=== PATIENT | male | born 1965 | race Caucasian/White ===

== ENCOUNTER 2019-09-02 07:11 | Inpatient (IN) | payer BC ==
[~2019-09-02 07:11] MED LIST: CEFAZOLIN 2 Gram 2 GM/50 ML BAG IVPB ONE; CELECOXIB 100 MG CAPSULE PO ONE; FAMOTIDINE 20MG TABLET PO ONE; MECLIZINE 25 MG TABLET PO ONE; METOCLOPRAMIDE 10 MG TABLET PO ONE; RINGERS SOLUTION,LACTATED 1,000 ML IV ONE; VANCOMYCIN 1GM/200ML PREMIX 1 GM/200 ML PIGGYBACK IVPB ONE
[2019-09-02 07:29] LABS: ABO GROUP B; ANTIBODY SCREEN NEGATIVE (NEGATIVE); RH TYPE NEGATIVE
[2019-09-02] MEDS ORDERED: RINGERS SOLUTION,LACTATED 1,000 ML IV ONE ×2 (09:35→10:28)
[2019-09-02] MEDS ORDERED: BUPIVACAINE 0.5% W/EPI MPF 30 ML VIAL SQ ONE (09:57)
[2019-09-02] MEDS ORDERED: TRANEXAMIC ACID 1,000 MG/10 ML ML IVPB ONE (10:00)
[2019-09-02] MEDS ORDERED: TRANEXAMIC ACID 1,000 MG/10 ML ML IU ONE (10:00)
[2019-09-02] MEDS ORDERED: ACETAMINOPHEN W/ CODEINE 300MG/60MG TABLET PO PRN ×2 (10:56)
[2019-09-02] MEDS ORDERED: ZOLPIDEM TARTRATE 5 MG TABLET PO PRN (10:56)
[2019-09-02] MEDS ORDERED: AL HYDROX/MAG HYDROX 30ML UD PO PRN (10:56)
[2019-09-02] MEDS ORDERED: ONDANSETRON HCL IV 4 MG/2 ML VIAL IVP PRN (10:56)
[2019-09-02] MEDS ORDERED: TRAMADOL HCL 50 MG TABLET PO PRN (10:56)
[2019-09-02] MEDS ORDERED: HYDROCODONE/APAP 10/325 TABLET PO PRN (10:56)
[2019-09-02] MEDS ORDERED: NALOXONE 0.4 MG/1 ML VIAL IVP PRN (10:56)
[2019-09-02] MEDS ORDERED: BISACODYL 10 MG SUPP RC PRN (10:56)
[2019-09-02] MEDS ORDERED: DIPHENHYDRAMINE HCL 25 MG CAPSULE PO PRN (10:56)
[2019-09-02] MEDS ORDERED: KETOROLAC 30 MG/ML VIAL IVP PRN (10:56)
[2019-09-02] MEDS ORDERED: ACETAMINOPHEN 325 MG TAB PO PRN (10:56)
[2019-09-02] MEDS ORDERED: MAGNESIUM HYDROXIDE 30 ML UDC PO PRN (10:56)
[2019-09-02] MEDS: HYDROCODONE/APAP 10/325 TABLET PO PRN ×2 (13:56→17:32)
[2019-09-02] MEDS: SERTRALINE HCL 50 MG TABLET PO SCH (13:58)
[2019-09-02] MEDS: POTASSIUM CHLORIDE/D5-0.9%NACL 20 MEQ/1,000 ML BAG IV SCH ×2 (13:58→23:00)
--- NOTE | 2019-09-02 15:53 | Rehab Evaluation ---
Patient Information - Patient Information Diagnosis: R HIP DJD Ordered Treatment: PT Evaluate and Treat Status: Initial Evaluation Surgery: Yes (R THR) Date of Surgery: 09/02/19 Past Medical/Surgical Hx: PAST MEDICAL/SURGICAL HISTORY Past Surgical History APPY C SCOPE PMH - Respiratory Hx Respiratory Disorders No PMH - Cardiovascular Hx Cardiovascular Disorders No Exercise Tolerance Good PMH - Neuro Hx Neurological Disorders No PMH - GI Hx Gastrointestinal Disorders No PMH - Hx Genitourinary Disorders No PMH - Endocrine Hx Endocrine Disorders No PMH - Musculoskeletal Hx Musculoskeletal Disorders Yes Hx Arthritis Yes: RIGHT HIP PMH - Psych Hx Psychiatric Problems Yes Hx Anxiety Yes: CONTROLLED WITH MEDS HX ANXIETY ATTACKS PMH - Hematology/Oncology Hx Hematology/Oncology No Disorders Premorbid Status: Detail (The patient was independent with all mobility prior to surgery, however walking was painful per his report.) Social History: Detail (The patient lives alone in a one story home with 3 steps at the enterance and one hand rail. The bathroom is equipped with: a tub/shower combination, standard height toilet with a riser seat with handles. No grab bars are present in the bathroom. The patient has a front wheeled walker, crutches and a manager photography.) Precautions: [place], Fall, Other (WBAT on the R LE, THR precautions) - Time With Patient Total Time Spent With Patient (Min): 30 Treatment Procedures: Detail (Initial Evaluation, low complexity. The patient was returned to bed after treatment, [place]er[place] dressing attachment was found in bed, Nurse was notified. The patient was left in bed with ice in place and call light within reach.) Subjective Information - Subjective Information Per Patient (The patient had no complaints of pain.) Objective Data - Mental Status Patient Orientation: Oriented x3 - Visual Perception Appears within normal limits for therapeutic activities - ROM Not within normal limits (The patient's R hip is within total hip precautions.) - Strength/Tone Not within normal limits (The patient's LE strength was not tested s/p surgery however was functional ie: pt. was able to lift LE's in and out of bed.) - Bed Mobility Independent (The patient was independent with supine to and from sit transfer and scooting up in bed.) - Transfers Independent (The patient is independent with sit to and from stand transfer.) - Balance Balance Sitting: Good Balance Standing: Good - Sensation Intact - Gait Detail (The patient ambulated with front wheeled walker a distance of 84 feet x 1 WBAT on the R LE with assist of 1 to handle equipment.) Therapy Assessment - Therapy Assessment Detail (The patient was independent with bed mobility, transfers and ambulation on levels. Patient will be seen for 1-2 visits to complete PT inpt. goals.) Problem List - Problem List Physical Therapy Problem List: Detail (Decreased R LE strength s/p surgery.) Goals - Goals Physical Therapy Goals: 1) The patient will demonstrate good understanding of THR precautions. 2) The patient will be independent with THR HEP. 3) The patient will ambulate on stairs with supervision for safety using proper technique. Prognosis - Prognosis Good Plan - Plan Physical Therapy Plan: PT 1-2 visits for gait training on stairs and instruction in THR HEP.
[2019-09-02] MEDS: CEFAZOLIN 2 Gram 2 GM/50 ML BAG IVPB SCH (17:31)
[2019-09-02] MEDS: HYDROMORPHONE HCL 2 MG/ML VIAL IM PRN (18:56)
[2019-09-02] MEDS: DOCUSATE SODIUM 100 MG CAPSULE PO SCH (21:49)
[2019-09-03] MEDS: CEFAZOLIN 2 Gram 2 GM/50 ML BAG IVPB SCH ×2 (01:10→09:43)
[2019-09-03] MEDS: POTASSIUM CHLORIDE/D5-0.9%NACL 20 MEQ/1,000 ML BAG IV SCH (04:53)
[2019-09-03 06:54] LABS: HEMATOCRIT 37.7 % (42.0-52.0); HEMOGLOBIN 12.1 gm/dl (14.0-18.0)
[2019-09-03 07:13] LABS: BLOOD UREA NITROGEN 11 mg/dL (6-20); CREATININE 0.7 mg/dL (0.7-1.2); EST GLOMERULAR FILTRATION RATE > 60 mL/min; GLUCOSE,RANDOM 124 mg/dL (74-109)
[2019-09-03] MEDS ORDERED: DEXAMETHASONE 4 MG/ML 1ML VIAL IVP ONE (08:28)
[2019-09-03] MEDS ORDERED: 0.9 % SODIUM CHLORIDE 10 ML VIAL IVP ONE (08:28)
[2019-09-03] MEDS ORDERED: ROPIVACAINE HCL (NAROPIN) /PF 5MG/ML 20ML VIAL IV ONE (08:28)
[2019-09-03] MEDS: HYDROCODONE/APAP 10/325 TABLET PO PRN (08:40)
--- NOTE | 2019-09-03 09:10 | Operative Note ---
DATE OF SURGERY: 09/02/2019 PREOPERATIVE DIAGNOSIS: Profound end-stage arthrosis of the right hip. POSTOPERATIVE DIAGNOSIS: Profound end-stage arthrosis of the right hip. OPERATION: Cementless right total hip arthroplasty using Berger and Nephew components with a size 56 no-hole Reflection cup, 20-degree offset 36 mm diameter highly crosslinked liner, a size 13 high-offset cementless [place] stem with a +4 36 mm diameter Oxinium head. STAFF SURGEON: Andrez Howard MD ANESTHESIA: Spinal. PREPARATION: Chloraprep. INDIVIDUAL CONSIDERATIONS: None. PROCEDURE: The patient was taken to the operating room, placed supine on the operating room table. Had a successful induction with spinal anesthetic. He was then placed on his side right side up, and his right leg and hip were prepped and draped in the usual fashion. The patient had direct posterior approach to the hip. Sharp dissection carried down through skin and subcutaneous tissues. Small veins were coagulated with a Bovie. The tensor gluteal fascia was opened along the entire length of the incision, and deep retractors were placed. Short external rotators were identified, piriformis fossa removed. This exposed the posterior capsule. Posterior capsulectomy was performed. Hip was dislocated posteriorly. The patient had gigantic inferior spur about the size of my thumb. A femoral neck cut was then made about a fingerbreadth above the lesser troc with an oscillating saw. I then finished doing a rim capsulectomy. Starting with a 45 mm reamer to medialize, I reamed to the introitus, which was a 55 for a 56 cup. I slightly under-reamed to 54. After thorough irrigation, I impacted a size 56 no- hole Reflection cup in 20 degrees of forward flexion and 40 degrees of abduction using the extraarticular alignment guide and bony landmarks. There was solid cementless fixation. The center cap screw was placed, and then I placed the 20- degree offset 36 mm diameter liner with the offset posteriorly and inferiorly. This gave an excellent stable acetabular construct, and this was packed off. The proximal femur was delivered into the wound, and box cutting osteotome was used to remove the proximal metaphyseal bone, which was extremely hard. Midstem reaming was done to a 14. I started feeling cortex maybe at 12-1/2 to 13. I broached to only a 13. The cortex in the proximal area was so thick that there was just no way I was going to need to go up to a 14 and it was extremely solid. I broached to about 20 degrees of anteversion to 25 degrees. Using a high-offset trial and a +4 trial, there was excellent motion and stability. Full anterior stability in extension and external rotation. Full posterior stability with 90/90, flexion 90, internal rotation 90 and then flexing max to the chest as far as I could get it and then internally rotating 40 degrees was still stable. The trial was removed. After thorough irrigation, I went ahead and impacted a size 13 high-offset [place] stem with solid calcar contact. Anteversion was probably about 25 degrees. After thorough irrigation and drying the [place] taper, I impacted a size 4 36 mm diameter Oxinium head on the [place] taper, reduced the hip with similar stability. The sciatic nerve was inspected and found to be completely intact. At this point in time, I noticed that there was a crack in the greater trochanter. It was stable but I thought best to just reinforce it with a cable. I went ahead and placed a cable through a drill hole on the proximal portion of the trochanter and underneath the calcar and after tightening down the cable, the trochanter was completely stable and solid. Again sciatic nerve was inspected and found to be completely intact. Hemostasis was obtained with a Bovie. After thorough irrigation, I placed 1 g of tranexamic acid mixed with 30 mL of saline deep to the fascia. The fascia was then closed with a running #2 quill, subcu was closed in layers with running 0 quill, skin was closed with bishop. The skin and subcu were infiltrated with 30 mL of 0.5% Marcaine with epinephrine. Sterile bulky compressive ROC-type dressing was applied. The patient tolerated the procedure well. Needle and sponge counts were correct. Estimated blood loss was minimal, and he was taken back to recovery in good condition. There were no complications. JYOTI
[2019-09-03] MEDS: HYDROMORPHONE HCL 2 MG/ML VIAL IM PRN (09:41)
[2019-09-03] MEDS: DOCUSATE SODIUM 100 MG CAPSULE PO SCH (09:43)
[2019-09-03] MEDS ORDERED: RIVAROXABAN 10 MG TABLET PO SCH (10:00)
[2019-09-03] MEDS ORDERED: FERROUS SULFATE 325 MG TAB PO SCH (10:00)
--- NOTE | 2019-09-03 10:32 | Rehab Evaluation ---
Patient Information - Patient Information Diagnosis: R HIP DJD Ordered Treatment: OT Evaluate and Treat Status: Initial Evaluation Surgery: Yes (R THR) Date of Surgery: 09/02/19 Past Medical/Surgical Hx: PAST MEDICAL/SURGICAL HISTORY Past Surgical History APPY C SCOPE PMH - Respiratory Hx Respiratory Disorders No PMH - Cardiovascular Hx Cardiovascular Disorders No Exercise Tolerance Good PMH - Neuro Hx Neurological Disorders No PMH - GI Hx Gastrointestinal Disorders No PMH - Hx Genitourinary Disorders No PMH - Endocrine Hx Endocrine Disorders No PMH - Musculoskeletal Hx Musculoskeletal Disorders Yes Hx Arthritis Yes: RIGHT HIP PMH - Psych Hx Psychiatric Problems Yes Hx Anxiety Yes: CONTROLLED WITH MEDS HX ANXIETY ATTACKS PMH - Hematology/Oncology Hx Hematology/Oncology No Disorders Premorbid Status: Detail (The patient was independent with all mobility prior to surgery, however walking was painful per his report. He was also Ind with all meal prep, laundry and home mgmt tasks.) Social History: Detail (The patient lives alone in a one story home with 3 steps at the entrance and one hand rail. The bathroom is equipped with: a tub/shower combination, standard height toilet with a riser seat with handles. No grab bars are present in the bathroom. The patient has a front wheeled walker, crutches and a combination window installer.) Precautions: [place], Fall, Other (WBAT on the R LE, THR precautions) - Time With Patient Total Time Spent With Patient (Min): 40 Treatment Procedures: Detail (OT eval low complexity) Subjective Information - Subjective Information Per Patient Objective Data - Pain Pain Present: Yes (2) - Mental Status Patient Orientation: Oriented x3 - Visual Perception Appears within normal limits for therapeutic activities - ROM Within normal limits ([place] UE AROM WNL) - Strength/Tone Within normal limits ([place] UE strength WNL) - Coordination Appears within normal limits for therapeutic activities - Bed Mobility Independent (Ind with supine to sit and sit to supine after verbal cues for technique) - Transfers Independent (Ind with sit to stand from EOB) - Balance Balance Sitting: Good Balance Standing: Good - Sensation Intact - Gait Detail (Pt ambulating in room with 2 wheeled walker and supervision) - ADL's/IADL's Detail (Reviewed hip precautions and modified LE dressing technique using adaptive equipment. Pt able to demonstrate doffing slipper socks and briefs as well as donning underwear, PJ bottoms, socks and slip on shoes after verbal instruction. He did require min assist for shoes due to heel of shoe folding down. Pt reports he will have assistance for the first several days. Reviewed kitchen, laundry and shower safety and modifications, pt verbalized understanding.) Therapy Assessment - Therapy Assessment Detail (Pt is Ind with modified LE dressing techniques using adaptive equipment.) Problem List - Problem List Physical Therapy Problem List: Detail (Decreased R LE strength s/p surgery.) Occupational Therapy Problem List: Detail (No current IP OT problems identified.) Goals - Goals Physical Therapy Goals: 1) The patient will demonstrate good understanding of THR precautions. 2) The patient will be independent with THR HEP. 3) The patient will ambulate on stairs with supervision for safety using proper technique. Occupational Therapy Goals: No current IP OT goals identified. Prognosis - Prognosis Good Plan - Plan Physical Therapy Plan: PT 1-2 visits for gait training on stairs and instruction in THR HEP. Occupational Therapy Plan: Pt is discharged from IP OT at this time. Thank you for this referral.
--- NOTE | 2019-09-03 11:11 | Physical Therapy Tx Note ---
Physical Therapy Tx Note - Treatment Note Tolerated: Good Total Time Spent With Patient: 25 Physical Therapy Tx Note: Detail (Patient was supine in bed upon MEMS DEVICE SCIENTIST arrival. Patient states he's still a little nauseated but feeling better than earlier this morning. Patient performed the following exercises x10 reps each: ankle pumps, glut squeezes, quad sets, hip abduction with strap, heel slides, and hamstring sets. Patient transferred supine to sit independently. Patient transferred sit to and from stand CGA x1. Patient ambulated 74 feet with wheeled walker CGA/SBA x1. Patient descended and ascended 3 steps with using walker and stairwell railing CGA x1. Patient transferred sit to supine independently. Patient tolerated treatment well. Patient displays good understanding of hip precautions, stair climbing, ambulation with walker, and HEP. Patient was left supine in bed with call light within reach. Patient discharged from inpatient PT at this time as all goals are met.) Physical Therapy Problem List: Detail (Decreased R LE strength s/p surgery.) Physical Therapy Goals: 1) The patient will demonstrate good understanding of THR precautions. Met. 2) The patient will be independent with THR HEP. Met. 3) The patient will ambulate on stairs with supervision for safety using proper technique. Met. Prognosis: Good Physical Therapy Plan: Patient discharged from inpatient PT at this time as all goals are met.
[2019-09-03] MEDS: SERTRALINE HCL 50 MG TABLET PO SCH (14:09)
[2019-09-03] MEDS ORDERED: MIDAZOLAM HCL 2MG/2ML VIAL IV ONE (15:14)
[2019-09-03] MEDS ORDERED: PROPOFOL 10 MG/ML VIAL IV ONE (15:14)
[2019-09-03] MEDS ORDERED: PHENYLEPHRINE HCL 10 MG/ML VIAL IVP ONE (15:14)
[2019-09-03] MEDS ORDERED: EPHEDRINE SULFATE 50 MG/ML ML IV ONE (15:14)
[2019-09-03] MEDS ORDERED: LIDOCAINE 2% MDV (20MG/ML) 20ML VIAL IV ONE (15:14)
--- NOTE | 2019-09-04 13:50 | Discharge Summary ---
DATE OF ADMISSION: 09/02/2019 DATE OF DISCHARGE: 09/03/2019 DATE OF SURGERY: 09/02/2019 HISTORY: The patient is a delightful 53-year-old male who presents with end- stage arthrosis of his right hip. He was admitted after right total hip arthroplasty. Postoperatively he did extremely well. Discharge hemoglobin was 12.1 and he did not require transfusion. The plan is to discharge home in the care of his family. Home PT visiting nurse has been arranged. He will be given Xarelto followed by aspirin for DVT prophylaxis and Zoe for pain. Visiting nurse will remove his sutures in 2 weeks. He will follow up in my office in 4 weeks. FINAL DIAGNOSIS: End-stage arthrosis of the right hip. OPERATIONS/PROCEDURES: Cementless right total hip arthroplasty. JYOTI
== END 2019-09-03 14:30 | disposition home health service (06) | DRG 470 ==
LOC: MEDSURG 07:11
PROVIDERS: ADMIT Orthopaedic Surgery; ATTEND Orthopaedic Surgery
PROC: 0SR906A Replacement of Right Hip Joint with Oxidized Zirconium on Polyethylene Synthetic Substitute, Uncemented, Open Approach (ICD-10-PCS; principal; 2019-09-02 08:30)
DX: M16.11 Unilateral primary osteoarthritis, right hip (principal)
CPT/HCPCS: 76942; 80048; 85014; 85018; 86850; 86900; 86901; C1776; J1885; J2370; J2405; J3370; J3480; J7120